=== PATIENT | female | born 1965 | race Caucasian/White ===

== ENCOUNTER 2019-09-08 14:58 | Outpatient (CLI) | payer OTHER ==
[~2019-09-08 14:58] MED LIST: CIPRO500 MG PO; DOLOGESIC 500-1 EACH PO; URIN D.S. TABL1 EACH PO
== END 2019-09-08 15:18 | disposition home or self-care (01) ==
LOC: LAB 14:58
DX: N39.0 Urinary tract infection, site not specified (principal); N20.0 Calculus of kidney; E66.3 Overweight; Z00.00 Encounter for general adult medical examination without abnormal findings; Z12.11 Encounter for screening for malignant neoplasm of colon

== ENCOUNTER 2019-09-10 16:01 | Outpatient (CLI) | payer OTHER | END 2019-09-10 16:19 | disposition home or self-care (01) | LOC: LAB 16:01 | DX: N39.0 Urinary tract infection, site not specified (principal); N20.0 Calculus of kidney; E66.3 Overweight; Z00.00 Encounter for general adult medical examination without abnormal findings; Z12.11 Encounter for screening for malignant neoplasm of colon ==

== ENCOUNTER 2020-02-10 09:46 | Emergency (ER) | payer OTHER ==
[~2020-02-10] VITALS: Ht 165.1 cm; Wt 95.3 kg
== END 2020-02-10 14:40 | disposition home or self-care (01) ==
LOC: ER 09:46
DX: N13.2 Hydronephrosis with renal and ureteral calculous obstruction (principal); R10.11 Right upper quadrant pain; R10.31 Right lower quadrant pain; Z03.818 Encounter for observation for suspected exposure to other biological agents ruled out

== ENCOUNTER 2022-10-15 01:25 | Emergency (ER) | payer OTHER ==
[~2022-10-15] VITALS: Ht 162.6 cm; Wt 99.8 kg
== END 2022-10-15 06:44 | disposition home or self-care (01) ==
LOC: ER 01:25
DX: J06.9 Acute upper respiratory infection, unspecified (principal); H10.89 Other conjunctivitis; Z20.822 Contact with and (suspected) exposure to COVID-19